=== PATIENT | female | born 1995 | race American Indian/Alaskan Native ===

== ENCOUNTER 2021-05-10 06:16 | Emergency (ER) | payer SELFPAY ==
--- NOTE | 2021-05-10 08:17 | Emergency Department Report ---
<TRAVIS BAHENA - Last Filed: 05/10/21 10:20> ED Female HPI - General Chief complaint: Nausea/Vomiting/Diarrhea Stated complaint: NAUSEA/VAGINAL BURNING DISCHARGED/STD/BARRAZA Time Seen by Provider: 05/10/21 08:11 Source: patient Mode of arrival: Ambulatory Limitations: No Limitations - History of Present Illness Initial comments: 25-year-old female complaining of off-and-on headaches, nausea ,vaginal itching, white vaginal discharge low back pain x2 weeks. Her last menstrual period was March 23, 2021 she denies fever no abdominal pain and no vomiting MD Complaint: vaginal discharge, possible STD -: week(s) (2) Are you Now?: No Last Menstrual Period: 03/23/21 EDC: 12/28/21 Associated Symptoms: vaginal discharge, nausea/vomiting, headaches, hematuria. denies: vaginal bleeding, abdominal pain, fever/chills - Related Data Sexually active: Yes Previous Rx's Medication Instructions Recorded Last Taken Type Fluconazole [Diflucan TAB] 200 mg PO QDAY 1 Days #1 tablet 05/10/21 Unknown Rx Sulfamethoxazole/Trimethoprim 1 each PO BID 3 Days #6 tablet 05/10/21 Unknown Rx [Bactrim DS TAB] Allergies Allergy/AdvReac Type Severity Reaction Status Date / Time amoxicillin Allergy Vomiting Verified 05/10/21 07:16 Penicillins Allergy Vomiting Verified 05/10/21 07:16 ED Review of Systems Comment: All other systems reviewed and negative Constitutional: denies: chills, fever ENT: denies: ear pain, throat pain, dental pain, hearing loss Respiratory: denies: cough Endocrine: no symptoms reported. denies: flushing, intolerance to cold, intolerance to heat, increased hunger, increased thirst, increased urine Gastrointestinal: nausea Genitourinary: discharge Musculoskeletal: back pain Skin: denies: rash, lesions Neurological: headache ED Past Medical Hx - Past Medical History Previous Medical History?: No - Surgical History Past Surgical History?: No - Medications Home Medications: Home Medications Medication Instructions Recorded Confirmed Last Taken Type Fluconazole [Diflucan TAB] 200 mg PO QDAY 1 Days #1 tablet 05/10/21 Unknown Rx Sulfamethoxazole/Trimethoprim 1 each PO BID 3 Days #6 tablet 05/10/21 Unknown Rx [Bactrim DS TAB] ED Physical Exam - General Limitations: No Limitations General appearance: alert, in no apparent distress - Head Head exam: Present: atraumatic - Eye Eye exam: Present: normal appearance - ENT ENT exam: Present: normal exam - Neck Neck exam: Present: normal inspection - Respiratory Respiratory exam: Present: normal lung sounds bilaterally - Cardiovascular Cardiovascular Exam: Present: regular rate, normal heart sounds - GI/Abdominal GI/Abdominal exam: Present: soft, tenderness (Suprapubic tenderness), normal bowel sounds. Absent: distended - External exam: Present: normal external exam Speculum exam: Present: vaginal bleeding. Absent: vaginal discharge, tissue, laceration Bi-manual exam: Present: normal bi-manual exam - Extremities Exam Extremities exam: Present: normal inspection - Back Exam Back exam: Absent: CVA tenderness (R), CVA tenderness (L) - Neurological Exam Neurological exam: Present: alert, oriented X3 - Psychiatric Psychiatric exam: Present: normal affect - Skin Skin exam: Present: warm, dry, intact ED Course - Reevaluation(s) Reevaluation #1: 05/10/21 10:03 Patient states her. Has now started after going to the bathroom. Vaginal exam completed bloody discharge from coming from the cervix no abnormal discharge noted. Urine positive for UTI she has a negative I informed patient regarding her results and the negative patient continues to complain of vaginal itching plan to treat patient with Diflucan for possible vaginitis but I also instructed patient that she needed to follow-up with her PCP or Department of Health for STD screening. ED Medical Decision Making - Medical Decision Making 25-year-old female with a 2-week complaint of vaginal itching vaginal discharge with odor back pain and nausea for 2 weeks. Lab works revealed that patient is not while in the emergency room she started on her menstruation. Urine test positive for UTI . I discussed all the findings with patient on exam vaginal exam is positive blood from the cervix no clots no tissue. Will treat patient for UTI and with a dose of Diflucan for vaginitis patient instructed to follow-up either with her PCP or STD clinic or health department to get evaluation for possible STD. Instruct patient regarding use of condoms all the time every time for STD prevention. She verbalizes understanding of all instructions. Critical Care Time: No ED Disposition Clinical Impression: Vaginitis Qualifiers: Chronicity: acute Qualified Code(s): N76.0 - Acute vaginitis Disposition: DC-01 TO HOME OR SELFCARE Is pt being admited?: No Does the pt Need Aspirin: No Condition: Stable Instructions: Vaginitis, [id number], Urinary Tract Infection, Adult, [id number] Additional Instructions: Drink plenty of water at least 8 to 10 glasses of water daily. Urinate frequently do not hold your urine and void after sex. Use condoms all the time every time for STD prevention. Follow-up with your local health department your primary care doctor or Dr. Cuevas for evaluation of possible STD. Take medications as prescribed. Return to the emergency room for any worsening symptoms acute abdominal pain in ability to urinate, fever and chills. Prescriptions: Sulfamethoxazole/Trimethoprim [Bactrim DS TAB] 1 each PO BID 3 Days #6 tablet Fluconazole [Diflucan TAB] 200 mg PO QDAY 1 Days #1 tablet Referrals: PRIMARY MD SALINA [Primary Care Provider] - 3-5 Days YESIKA CUEVAS MD [Staff Physician] - 3-5 Days Time of Disposition: 10:13 <KINA AGUAYO - Last Filed: 05/10/21 15:24> ED Review of Systems ROS: Stated complaint: NAUSEA/VAGINAL BURNING DISCHARGED/STD/BARRAZA Other details as noted in HPI ED Course Vital Signs 05/10/21 05/10/21 05/10/21 07:20 07:21 10:31 Temperature 98 F Pulse Rate 83 Respiratory 20 Rate Blood Pressure 159/102 Blood Pressure 147/99 [Right] O2 Sat by Pulse 100 Oximetry ED Medical Decision Making - Lab Data Vital Signs 05/10/21 05/10/21 05/10/21 07:20 07:21 10:31 Temperature 98 F Pulse Rate 83 Respiratory 20 Rate Blood Pressure 159/102 Blood Pressure 147/99 [Right] O2 Sat by Pulse 100 Oximetry Lab Results 05/10/21 Range/Units Unknown Urine Color Yellow (Yellow) Urine Turbidity Slightly-cloudy (Clear) Urine pH 6.0 (5.0-7.0) Ur Specific [place] 1.021 (1.003-1.030) Urine Protein 30 mg/dl (Negative) mg/dL Urine Glucose (UA) Neg (Negative) mg/dL Urine Ketones Neg (Negative) mg/dL Urine Blood Lg (Negative) Urine Nitrite Neg (Negative) Urine Bilirubin Neg (Negative) Urine Urobilinogen < 2.0 (<2.0) mg/dL Ur Leukocyte Esterase Tr (Negative) Urine WBC (Auto) 12.0 H (0.0-6.0) /HPF Urine RBC (Auto) 148.0 (0.0-6.0) /HPF U Epithel Cells (Auto) 11.0 (0-13.0) /HPF Urine Mucus Few /HPF Urine HCG, Qual Negative (Negative) Critical care attestation.: If time is entered above; I have spent that time in minutes in the direct care of this critically ill patient, excluding procedure time. ED Disposition Is pt being admited?: No Does the pt Need Aspirin: No
[2021-05-10 09:46] LABS: Bilirubin,Urine NEG (Negative); Blood,Urine LG (Negative); Color,Urine Yellow (Yellow); Mucus,Urine FEW /HPF; Urobilinogen,Urine < 2.0 mg/dL (<2.0)
[2021-05-10 09:50] LABS: HCG Qualitative,Urine Negative (Negative)
[2021-05-10 10:32] VITALS: BP 147/99
== END 2021-05-10 10:31 | disposition home or self-care (01) ==
LOC: ED 06:16
DX: N76.0 Acute vaginitis (principal); Z79.899 Other long term (current) drug therapy; Z88.0 Allergy status to penicillin
CPT/HCPCS: 81001; 81025; 87086